=== PATIENT | female | born 1990 | race African-American/Black ===

== ENCOUNTER 2016-12-04 12:49 | Emergency (ER) | payer OTHER ==
--- NOTE | 2016-12-04 13:32 | ER Document Report ---
ED Medical Screen (RME) - General Stated Complaint: SIDE PAIN Time seen by provider: 13:30 Mode of Arrival: Ambulatory Information source: Patient Notes: 26-year-old visiting from [facility] for a is here because she has a rash and some drainage from gastric bypass surgery that was done 2 weeks ago. The airlines took away her Lovenox and her pain medication. Not sure when she is returning home. Fever Sunday was 101. No fever today. I have greeted and performed a rapid initial assessment of this patient. A comprehensive ED assessment, evaluation of the patient, analysis of test results , and completion of the medical decision making process will be contacted by additional ED providers. Physical Exam - Vital signs Vitals: Temp Pulse Resp BP Pulse Ox 98.2 F 75 18 137/82 H 98 12/04/16 13:06 12/04/16 13:06 12/04/16 13:06 12/04/16 13:06 12/04/16 13:06 Course - Vital Signs Vital signs: Temp Pulse Resp BP Pulse Ox 98.2 F 75 18 137/82 H 98 12/04/16 13:06 12/04/16 13:06 12/04/16 13:06 12/04/16 13:06 12/04/16 13:06
[2016-12-04 14:32] LABS: ABSOLUTE EOSINOPHILS # (AUTO) 0.5 10^3/uL (0.0-0.6); ABSOLUTE LYMPHOCYTES (AUTO) 2.6 10^3/uL (0.5-4.7); ABSOLUTE MONOCYTES (AUTO) 0.4 10^3/uL (0.1-1.4); ABSOLUTE NEUT (AUTO) 2.9 10^3/uL (1.7-8.2); BASOPHILS % (AUTO) 0.6 % (0-2); EOSINOPHILS % (AUTO) 7.5 % (0-6); HEMOGLOBIN 11.8 g/dL (12.0-15.5); HGB HCT DIFFERENCE -1.6; LYMPHOCYTES % (AUTO) 40.1 % (13-45); MEAN CORPUSCULAR HEMOGLOBIN 26.3 pg (27.0-33.4); MEAN CORPUSCULAR HGB CONC 31.9 g/dL (32.0-36.0); MEAN CORPUSCULAR VOLUME 82 fl (80-97); MONOCYTES % (AUTO) 6.2 % (3-13); RED BLOOD COUNT 4.49 10^6/uL (3.72-5.28); RED CELL DISTRIBUTION WIDTH 15.4 % (11.5-14.0); SEGMENTED NEUTROPHILS % (AUTO) 45.6 % (42-78); WHITE BLOOD COUNT 6.4 10^3/uL (4.0-10.5)
[2016-12-04 14:37] LABS: APPEARANCE,URINE CLOUDY; BILIRUBIN,URINE NEGATIVE (NEGATIVE); GLUCOSE, URINE NEGATIVE (NEGATIVE); KETONES,URINE NEGATIVE (NEGATIVE); LEUKOCYTE ESTERASE,URINE LARGE (NEGATIVE); NITRITE,URINE NEGATIVE (NEGATIVE); PARTIAL THROMBOPLASTIN TIME 27.5 SEC (23.5-35.8); PROTEIN,URINE 30 mg/dL (NEGATIVE); PROTHROMBIN TIME 13.6 SEC (11.4-15.4); URINE SPECIFIC GRAVITY 1.029; UROBILINOGEN,URINE NEGATIVE mg/dL (<2.0)
[2016-12-04 14:56] LABS: ALANINE AMINOTRANSFERASE 89 U/L (9-52); ALBUMIN 4.5 g/dL (3.5-5.0); ALKALINE PHOSPHATASE 112 U/L (38-126); ANION GAP 11 (5-19); ASPARTATE AMINO TRANSFERASE 30 U/L (14-36); BILIRUBIN,TOTAL 0.4 mg/dL (0.2-1.3); BLOOD UREA NITROGEN 11 mg/dL (7-20); CALCIUM 9.7 mg/dL (8.4-10.2); CARBON DIOXIDE 26 mmol/L (22-30); CHLORIDE 106 mmol/L (98-107); GLUCOSE 90 mg/dL (75-110); LIPASE 53.1 U/L (23-300); POTASSIUM 4.3 mmol/L (3.6-5.0); SODIUM 142.5 mmol/L (137-145); TOTAL PROTEIN 7.6 g/dL (6.3-8.2)
--- NOTE | 2016-12-04 16:27 | ER Document Report ---
ED General - General Chief Complaint: Incision Drainage Stated Complaint: SIDE PAIN Time seen by provider: 16:15 Mode of Arrival: Ambulatory Notes: 26-year-old female 2 weeks status post gastric bypass surgery in [facility]. Patient unsureof the flight here for a family and reports that her pain medication and Lovenox shots were confiscated by [employer]. The patient says that for the past 2 days she's noticed some clear drainage and mild discomfort from surgical incisions on her left mid abdomen and left flank. He also reports that for the past 2 days she's had an itching area of erythema to the lower abdomen bilaterally. She reports she is on a liquid diet since her surgery and has been tolerating that well. She denies fever, chills, vomiting, diarrhea, dysuria, chest pain, or back pain. Physical Exam: General: Alert, appears well. HEENT: Normocephalic. Atraumatic. PERRLA. Extraocular movements intact. Oropharynx clear. Neck: Supple. Non-tender. Respiratory: No respiratory distress. Clear and equal breath sounds bilaterally. Cardiovascular: Regular rate and rhythm. Abdominal: Patient has multiple well-healed incisions to the abdomen bilaterally. Left mid abdominal incision the patient reports has had some clear drainage appears to be intact with edges are well approximated no induration warm swelling discharge or purulence is present. No crepitance or fluctuance is present. Left flank incision also appears to be healing well with her signs or symptoms of infection to induration crepitance or fluctuance discharge or bleeding. Patient has brought ears of erythema to the lower abdomen bilaterally which corresponded where patient is complaining of itching. These do not correspond to her incision sites No distension. Normal Bowel Sounds. No guarding rebound rigidity Back: Non-tender. No deformity or step off. Extremities: Moves all four extremities. Upper extremities: Normal inspection. Non-tender. Normal color. Normal ROM. Normal temperature. Lower extremities: Normal inspection. Non-tender. No edema. Normal color. Normal ROM. Normal temperature. Neurological: Speech clear mentation normal Psychological: Normal affect. Normal Mood. Skin: Warm. Dry. Normal color. TRAVEL OUTSIDE OF THE [place] IN LAST 30 DAYS: No - Related Data Allergies/Adverse Reactions: Penicillins Allergy (Verified 12/04/16 13:34) Past Medical History - General Information source: Patient - Social History Smoking Status: Current Every Day Smoker Chew tobacco use (# tins/day): Yes Family History: Reviewed & Not Pertinent Patient has suicidal ideation: No Patient has homicidal ideation: No Renal/ Medical History: Denies: Hx Peritoneal Dialysis Past Surgical History: Reports: Hx Abdominal Surgery - gastric bypass Review of Systems - Review of Systems Constitutional: denies: Chills, Fever EENT: denies: Ear pain, Throat pain Cardiovascular: denies: Chest pain, Palpitations Respiratory: denies: Short of breath Gastrointestinal: See HPI Genitourinary: See HPI Musculoskeletal: denies: Back pain Skin: Rash Neurological/Psychological: denies: Weakness, Numbness Physical Exam - Vital signs Vitals: Temp Pulse Resp BP Pulse Ox 98.2 F 75 18 137/82 H 98 12/04/16 13:06 12/04/16 13:06 12/04/16 13:06 12/04/16 13:06 12/04/16 13:06 Course - Re-evaluation Re-evalutation: 12/04/16 16:31 Patient is on for UTI would placed on antibiotics for that. Her incision sites appear healthy and she is reassured that did not find any evidence for problems related to her surgery. His requesting prescription for Lovenox for DVT prophylaxis that she has one week left help provide that. Also prescribed tramadol for pain History recommended use hydrocortisone cream for the rest of her abdomen. I do not have a clear etiology for that but does not appear concerning for serious etiology - Vital Signs Vital signs: Temp Pulse Resp BP Pulse Ox 98.2 F 75 18 137/82 H 98 12/04/16 13:06 12/04/16 13:06 12/04/16 13:06 12/04/16 13:06 12/04/16 13:06 - Laboratory Result Diagrams: 12/04/16 14:15 12/04/16 14:15 Laboratory results interpreted by me: 12/04/16 12/04/16 12/04/16 14:15 14:15 14:15 Hgb 11.8 L MCH 26.3 L MCHC 31.9 L RDW 15.4 H Eosinophils % 7.5 H ALT 89 H Urine Protein 30 H Ur Leukocyte Esterase LARGE H Urine Ascorbic Acid 40 H 12/04/16 16:31 - Diagnostic Test Radiology reviewed: Image reviewed, Reports reviewed Discharge - Discharge Clinical Impression: Postoperative pain, Rash and nonspecific skin eruption UTI (urinary tract infection) Qualifiers: Urinary tract infection type: site unspecified Hematuria presence: without hematuria Qualified Code(s): N39.0 - Urinary tract infection, site not specified Condition: Stable Disposition: HOME, SELF-CARE Instructions: Urinary Tract Infection ([facility]) Additional Instructions: Follow-up with your doctor as soon as you return home. Return to emergency department for further problems Prescriptions: Enoxaparin Sodium [Lovenox Inj 40 Mg/0.4 Ml Disp.Syrin] 40 mg SUBCUT DAILY #7 disp.syrin Nitrofurantoin Monohyd/M-Cryst [Macrobid 100 mg Capsule] 100 mg PO BID #20 capsule Tramadol HCl 50 mg PO BID #20 tablet
[2016-12-04 17:18] VITALS: BP 124/72
== END 2016-12-04 17:17 | disposition home or self-care (01) ==
LOC: ER 12:49
DX: G89.18 Other acute postprocedural pain (principal); R10.9 Unspecified abdominal pain; N39.0 Urinary tract infection, site not specified; R21 Rash and other nonspecific skin eruption; F17.200 Nicotine dependence, unspecified, uncomplicated; Z98.84 Bariatric surgery status; Z88.0 Allergy status to penicillin
CPT/HCPCS: 36415; 71020; 80053; 81001; 83690; 85025; 85610; 85730; 87086; 99283

== ENCOUNTER 2017-03-19 06:30 | Emergency (ER) | payer OTHER ==
--- NOTE | 2017-03-19 07:53 | ER Document Report ---
ED General - General Mode of Arrival: Ambulatory Information source: Patient TRAVEL OUTSIDE OF THE [place] IN LAST 30 DAYS: No - HPI Patient complains to provider of: 'Black outs', hallucinations, migraine, and sensitivity to light Onset: Other - see notes above Associated symptoms: Other - see notes above <LUCILLE LOPEZ - Last Filed: 03/19/17 09:44> <CAROLE ASH - Last Filed: 03/19/17 13:56> - General Chief Complaint: Other Stated Complaint: BLACKOUTS/HALLUCINATIONS Time Seen by Provider: 03/19/17 07:35 Notes: 26 year old female with history of gastric bypass surgery, night terrors, insomnia, anxiety, lupus, fibromyalgia, chronic knee pain, and back spasms presents to the ED complaining of hallucinations (fitzpatrick 'breathing'), migraines , and sensitivity to light for the past 2 days, and nightly 'blackouts' for the past 2 months. Patient states that she had her Zolaf medication switched to Celexa 2 weeks ago and had her dose increased 4 days ago. Patient explains that she was seeing Dr. Ellen Toro, but was unsatisfied with her care and is complaining about how she had the patient on medications that were interacting with each other and then suddenly changing her Zolaf medication without weaning her off it. Patient explains that she recently lost her father and believes that her symptoms could be a result of it. (LUCILLE LOPEZ) - Related Data Allergies/Adverse Reactions: Penicillins Allergy (Verified 03/19/17 06:39) Past Medical History - General Information source: Patient - Social History Smoking Status: Unknown if Ever Smoked Family History: Reviewed & Not Pertinent Renal/ Medical History: Denies: Hx Peritoneal Dialysis Musculoskeltal Medical History: Reports Hx Fibromyalgia, Reports Other - Chronic bilateral knee pain and back spasms Psychiatric Medical History: Reports: Hx Anxiety, Other - Insomnia and Night Terrors Past Surgical History: Reports: Hx Abdominal Surgery - gastric bypass <LUCILLE LOPEZ - Last Filed: 03/19/17 09:44> <CAROLE ASH - Last Filed: 03/19/17 13:56> - Medical History Notes: Lupus (LUCILLE LOPEZ) Review of Systems - Review of Systems Constitutional: No symptoms reported EENT: See HPI, Other - sensitivity to light Cardiovascular: See HPI, Syncope - 'blackouts' Respiratory: No symptoms reported Gastrointestinal: No symptoms reported Genitourinary: No symptoms reported Female Genitourinary: No symptoms reported Musculoskeletal: No symptoms reported Skin: No symptoms reported Hematologic/Lymphatic: No symptoms reported Neurological/Psychological: See HPI, Anxiety, Hallucinations - 'breathing' fitzpatrick , Headaches, Other - difficulty sleeping -: Yes All other systems reviewed and negative <LUCILLE LOPEZ - Last Filed: 03/19/17 09:44> Physical Exam - General General appearance: Alert In distress: None - HEENT Head: Normocephalic, Atraumatic Eyes: Normal Extraocular movements intact: Yes Pupils: PERRL Neck: Normal - Respiratory Respiratory status: No respiratory distress Breath sounds: Normal - Cardiovascular Rhythm: Regular Heart sounds: Normal auscultation - Abdominal Inspection: Normal Distension: No distension Tenderness: Nontender - Back Back: Normal - Extremities General upper extremity: Normal inspection, Normal ROM General lower extremity: Normal inspection, Normal ROM - Neurological Neuro grossly intact: Yes Cognition: Normal Orientation: AAOx4 Candy Coma Scale Eye Opening: Spontaneous Candy Coma Scale Verbal: Oriented Candy Coma Scale Motor: Obeys Commands Candy Coma Scale Total: 15 Speech: Normal - Psychological Associated symptoms: Normal affect, Normal mood - Skin Skin Temperature: Warm Skin Moisture: Dry Skin Color: Normal <LUCILLE LOPEZ - Last Filed: 03/19/17 09:44> Course - Laboratory Result Diagrams: 03/19/17 08:10 03/19/17 08:10 <LUCILLE LOPEZ - Last Filed: 03/19/17 09:44> - Laboratory Result Diagrams: 03/19/17 08:10 03/19/17 08:10 <CAROLE ASH - Last Filed: 03/19/17 13:56> - Re-evaluation Re-evalutation: 03/19/17 09:24 Patient presents to the emergency department with chief complaint of tremors blackouts hallucinations clammy skin is been going on since November. She did all of her medications have been changed and that she is doing her doctor because they inappropriately did wean her off of them. She said she recently decreased her Celexa she still takes Ambien she is angry that they stop giving her exam Xanax and switch her to BuSpar she also takes oxycodone and Flexeril. On my examination she is well-appearing nontoxic in no acute distress with stable vital signs no altered mental status no nuchal rigidity and normal neurological examination. Acute labs are stable she is not hallucinating from a psychiatric standpoint. Full workup including CT of the head negative for acute pathology. Suspicion that there is interaction going on between the different medications. And I recommend she sees her primary care physician in 2 -3 days and discussed reasons for ED return (CAROLE ASH) - Vital Signs Vital signs: Temp Pulse Resp BP Pulse Ox 98.6 F 58 L 18 137/76 H 100 03/19/17 09:56 03/19/17 09:56 03/19/17 09:56 03/19/17 09:56 03/19/17 09:56 - Laboratory Laboratory results interpreted by me: 03/19/17 03/19/17 08:10 08:10 MCH 25.6 L MCHC 31.6 L RDW 16.2 H Eosinophils % 10.1 H Urine Blood LARGE H Discharge <LUCILLE LOPEZ - Last Filed: 03/19/17 09:44> <CAROLE ASH - Last Filed: 03/19/17 13:56> - Discharge Clinical Impression: suspect medication interactions Condition: Stable Disposition: HOME, SELF-CARE Additional Instructions: suspect Medication Side Effects Your unpleasant symptoms are due to a drug you're taking. These symptoms are a common side effect of the medicine. It's not a true allergy. We stop any unnecessary drugs when bothersome side effects occur. Sometimes we'll substitute a different type of drug. In other cases, we must continue the drug. If so, we try to find a way to decrease the side effects. Many side effects decrease with time. Call us if the symptoms don't go away. Primary care physician in 2-3 days return for increased worsening or new sent Scribe Attestation: 03/19/17 09:23 I personally performed the services described in the documentation reviewed the documentation recorded by my scribe in my presence and it accurately and completely records my words and actions (CAROLE ASH) Scribe Documentation - Scribe Written by Scribe:: Yogesh Dumont, 03/19/2017 0946 acting as scribe for :: Ronald <LUCILLE LOPEZ - Last Filed: 03/19/17 09:44>
[2017-03-19 08:29] LABS: ABSOLUTE BASOPHILS # (AUTO) 0.1 10^3/uL (0.0-0.2); ABSOLUTE EOSINOPHILS # (AUTO) 0.6 10^3/uL (0.0-0.6); ABSOLUTE LYMPHOCYTES (AUTO) 2.2 10^3/uL (0.5-4.7); ABSOLUTE MONOCYTES (AUTO) 0.3 10^3/uL (0.1-1.4); ABSOLUTE NEUT (AUTO) 2.5 10^3/uL (1.7-8.2); BASOPHILS % (AUTO) 1.1 % (0-2); EOSINOPHILS % (AUTO) 10.1 % (0-6); HEMATOCRIT 39.3 % (36.0-47.0); HEMOGLOBIN 12.4 g/dL (12.0-15.5); HGB HCT DIFFERENCE -2.1; LYMPHOCYTES % (AUTO) 39.5 % (13-45); MEAN CORPUSCULAR HEMOGLOBIN 25.6 pg (27.0-33.4); MEAN CORPUSCULAR HGB CONC 31.6 g/dL (32.0-36.0); MEAN CORPUSCULAR VOLUME 81 fl (80-97); MONOCYTES % (AUTO) 5.2 % (3-13); RED BLOOD COUNT 4.85 10^6/uL (3.72-5.28); RED CELL DISTRIBUTION WIDTH 16.2 % (11.5-14.0); SEGMENTED NEUTROPHILS % (AUTO) 44.1 % (42-78); WHITE BLOOD COUNT 5.6 10^3/uL (4.0-10.5)
[2017-03-19 08:33] LABS: APPEARANCE,URINE SLIGHTLY-CLOUDY; BILIRUBIN,URINE NEGATIVE (NEGATIVE); GLUCOSE, URINE NEGATIVE (NEGATIVE); KETONES,URINE NEGATIVE (NEGATIVE); LEUKOCYTE ESTERASE,URINE NEGATIVE (NEGATIVE); NITRITE,URINE NEGATIVE (NEGATIVE); PROTEIN,URINE NEGATIVE (NEGATIVE); URINE SPECIFIC GRAVITY 1.008; UROBILINOGEN,URINE NEGATIVE mg/dL (<2.0)
[2017-03-19 08:47] LABS: ANION GAP 9 (5-19); BLOOD UREA NITROGEN 9 mg/dL (7-20); CALCIUM 9.3 mg/dL (8.4-10.2); CARBON DIOXIDE 25 mmol/L (22-30); CHLORIDE 104 mmol/L (98-107); CREATININE RESULT 0.62 mg/dL (0.52-1.25); GLUCOSE 85 mg/dL (75-110); POTASSIUM 4.1 mmol/L (3.6-5.0); SODIUM 138.1 mmol/L (137-145)
[2017-03-19 08:50] LABS: URINE BARBITURATES SCREEN NEGATIVE; URINE METHADONE SCREEN NEGATIVE; URINE OPIATES LOW NEGATIVE; URINE PHENCYCLIDINE SCREEN NEGATIVE
--- NOTE | 2017-03-19 09:15 | RADIOLOGY REPORT (SQ) ---
EXAM DESCRIPTION: CT HEAD WITHOUT COMPLETED DATE/TIME: 03/19/2017 9:03 am REASON FOR STUDY: hallucinations COMPARISON: None. TECHNIQUE: Axial images acquired through the brain without intravenous contrast. Images reviewed wi th bone, brain and subdural windows. Images stored on PACS. LIMITATIONS: None. FINDINGS: VENTRICLES: Normal size and contour. CEREBRUM: No masses. No hemorrhage. No midline shift. Normal pacheco/white matter differentiation. N o evidence for acute infarction. CEREBELLUM: No masses. No hemorrhage. No alteration of density. No evidence for acute infarction. EXTRAAXIAL SPACES: No fluid collections. No masses. ORBITS AND GLOBE: No intra- or extraconal masses. Normal contour of globe without masses. CALVARIUM: No fracture. PARANASAL SINUSES: Mild diffuse paranasal sinus mucosal thickening with air-fluid level in the right maxillary sinus. SOFT TISSUES: No mass or hematoma. OTHER: No other significant finding. IMPRESSION: PARANASAL SINUS DISEASE. OTHERWISE UNREMARKABLE NONCONTRAST CT HEAD. COMMENT: WAS EXAM PERFORMED WITHIN 24 HOURS UPON ARRIVAL TO FACILITY? Yes. TECHNICAL DOCUMENTATION: JOB ID: [id number]
[2017-03-19 10:02] VITALS: BP 137/76
--- NOTE | 2017-03-19 21:13 | EKG REPORT ---
SEVERITY:- NORMAL ECG - SINUS RHYTHM : Confirmed by: Josie Coleman 19-Mar-2017 21:13:17
== END 2017-03-19 10:02 | disposition home or self-care (01) ==
LOC: ER 06:30
DX: T50.905A Adverse effect of unspecified drugs, medicaments and biological substances, initial encounter (principal); R44.3 Hallucinations, unspecified; G47.00 Insomnia, unspecified; F41.9 Anxiety disorder, unspecified; M32.9 Systemic lupus erythematosus, unspecified
CPT/HCPCS: 36415; 70450; 80048; 80307; 81001; 85025; 93005; 93010; 99284